=== PATIENT | male | born 1940 | race Caucasian/White ===

== ENCOUNTER 2021-12-19 08:53 | Emergency (ER) | payer MEDICARE, BC, SELFPAY ==
[2021-12-19 09:01] VITALS: BP 121/102; PULSE 81; RESP 26; TEMP 35.5; O2SAT 98; BMI 38.5
--- NOTE | 2021-12-19 09:28 | CRLHL7_ITS ---
For Patients: As a result of the Cures Act, medical imaging exams and procedure reports are released immediately into your electronic medical record. You may view this report before your referring provider. If you have questions, please contact your health care provider. INDICATION: SOB and Fluid Retention TECHNIQUE: Chest 1 view COMPARISON: None FINDINGS: Cardiovascular and mediastinum: Cardiac silhouette is enlarged. Lungs and pleural spaces: Lungs are clear. No sign of infiltrate or mass. No sign of pleural effusion. No pneumothorax. Bones and soft tissues: No significant findings. IMPRESSION: No acute findings. Dictated by Rajesh Neal MD @ 12/19/2021 10:00:30 AM (Electronically Signed)
--- NOTE | 2021-12-19 09:30 | ED_ITS ---
HPI - SOB/Dyspnea General Time Seen by Provider: 09:10 Date Seen: 12/19/21 Chief Complaint: Shortness of Breath/Dyspnea Stated Complaint: shortness of breath/AFIB Time Seen by Provider: 12/19/21 09:03 Source: patient, family and RN notes reviewed Mode of arrival: ambulatory Limitations: no limitations History of Present Illness HPI Narrative: Lg is a very pleasant 81 year old male with a history of afib on eliquis, htn, and gout who comes to the emergency room for increasing shortness of breath since Sunday. Patient notes that over the past month he has experienced increasing edema in his lower extremities. He had noted this in the past and 2 months ago had decreased his amlodipine dosing from 2 tabs to 1 tab because of the swelling. Since December 16, he has had increasing shortness of breath and has been ?huffing and puffing? around the house especially with activity. He denies any chest pain when this occurs but he does get very tired. He does have an associated nonproductive cough but denies a sore throat. His nose has been running but this sounds like this is a chronic issue. He has not had congestive heart failure in the past nor his experienced see any heart attacks. He has not had fever or chills. He primarily sees Dr. Orozco from [facility] in [place]. He called to try to get an appointment today and was unable to be seen for 6 weeks. He is now planning on changing his care locally. Related Data Home Medications Medication Instructions Recorded Confirmed allopurinol 100 mg tablet 200 mg PO DAILY 12/19/21 12/19/21 amlodipine 2.5 mg tablet 2.5 mg PO DAILY 12/19/21 12/19/21 apixaban 5 mg tablet (Eliquis) 5 mg PO BID 12/19/21 12/19/21 metoprolol succinate 25 mg 25 mg PO DAILY 12/19/21 12/19/21 tablet,extended release 24 hr [id number] 120 mcg-lutein 1,000 tab PO BID 12/19/21 12/19/21 150 mcg-herb 50 mg chewable tablet (Alive Men's 50 Plus Multivitamin) Previous Rx's Medication Instructions Recorded furosemide 20 mg tablet (Lasix) 20 mg PO DAILY #20 tab 12/19/21 Allergies Allergy/AdvReac Type Severity Reaction Status Date / Time Iodinated Contrast Media Allergy Verified 12/19/21 09:10 iodine Allergy Verified 12/19/21 09:10 Review of Systems Status of ROS: Reports: 10 or more systems reviewed and unremarkable except as noted in History and below Const: Denies: fever or chills Eyes: Denies: change in vision ENMT: Denies: throat pain or difficulty swallowing Cardio: Reports: shortness of breath with exertion and other (Does feel his heart rate increase with activity); Denies: chest pain or palpitations Resp: Reports: shortness of breath and cough (Nonproductive); Denies: wheezing GI: Denies: abdominal pain, nausea, vomiting or difficulty swallowing : Reports: urinary frequency (Without discomfort); Denies: painful urination Musculo: Denies: back pain Integ/Breast: Denies: skin pain Neuro: Denies: headache Endo: Denies: excessive urination or excessive thirst Allergy/Immuno: Denies: wheezing PFSH PFSH Medical History Afib Hypertension Sleep apnea in adult Social History Smoking Status: Never smoker Do you use any of these nicotine containing products: None Second hand tobacco smoke exposure: No How often do you have a drink containing alcohol: never How often do you have six or more drinks on one occasion: Never AUDIT-C Alcohol total score: 0 Non-prescribed substance use: denies use Exam Const: Vital Signs, click to edit/add: Vital Signs - 24 hr 12/19/21 09:01 Temperature 96 F L Pulse Rate [Pulse Oximeter] 81 Respiratory Rate 26 H Blood Pressure [Le ft Upper Arm] 121/102 H Pulse Oximetry 98 Documenting provider has reviewed patient's vital signs: yes Common normals: no apparent distress, oriented x3 and no limitations General appearance: cooperative and comfortable Nutritional appearance: overweight HENMT: Common normals: normocephalic and head/scalp atraumatic Head and scalp: normocephalic and atraumatic Eye: General eye: normal appearance of both eyes Neck & C-Spine: Common normals: no lymphadenopathy, supple, no JVD and thyroid normal Thyroid: thyroid normal Cervical spine: cervical ROM normal Lymph: Lymphatic: no lymphadenopathy noted Resp: Common normals: normal respiratory effort and clear to auscultation bilaterally Effort & inspection: able to speak in complete sentences (Becomes slightly breathless with extended speech.) Auscultation: clear to auscultation bilaterally Cardio: Common normals: no JVD and regular rate Rate: regular rate Rhythm: abnormal rhythm (Irregularly irregular) GI: Common normals: soft to palpation and non-tender Palpation: soft Extremity: Other: 2 to 3+ pedal edema extending on to the middle tibia noted. This is pitting. No weeping or drainage. Neuro: Common normals: oriented x3 Psych: Common normals: mental status grossly normal Appearance: grossly normal Course Course Hospital Course: At this time patient is presenting with increasing shortness of breath and associated with lower extremity edema. Differential diagnosis includes but is not limited to congestive heart failure, electrolyte imbalance, kidney pathology, COVID. At this time will obtain laboratory values to include a CBC, comprehensive panel, urinalysis, troponin, proBNP. Will also obtain EKG and chest x-ray. Patient will receive Lasix 40 mg IV after saline lock is placed. 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 He will also be on pulse oximetry. Finally, will check a COVID. Reevaluation(s) Time: 11:47 Reevaluation #2: Patient states he is feeling better after having received 40 mg IV Lasix. Feels like his right leg has decreased in size but his left leg is still swollen. He notes he is breathing better. I have explained to him that hemoglobin is elevated 18. To. He states that in the past he has been asked to follow up with his primary MD. he also notes that he has had issues with elevated calcium. Seem today is 10.3. We will set him up has a new patient with Dr. Nelson as patient lives in the [place] area. Reevaluation #3: Patient ambulating with nursing who notes and O2 sat maintained at 95%. Vital Signs Vital signs: Initial Vital Signs Temperature 96 F L 12/19/21 09:01 Temperature Source Temporal Artery Scan 12/19/21 09:01 Pulse Rate 81 12/19/21 09:01 Pulse Rhythm 12/19/21 09:01 Respiratory Rate 26 H 12/19/21 09:01 Blood Pressure 121/102 H 12/19/21 09:01 Blood Pressure Mean 108 12/19/21 09:01 Pulse Oximetry 98 12/19/21 09:01 Oxygen Delivery Method 12/19/21 09:01 Vital Signs Temperature 96 F L 12/19/21 09:01 Pulse Rate 81 12/19/21 09:01 Respiratory Rate 26 H 12/19/21 09:01 Blood Pressure 121/102 H 12/19/21 09:01 Pulse Oximetry 98 12/19/21 09:01 Temperature 96 F L 12/19/21 09:01 Pulse Rate 81 12/19/21 09:01 Respiratory Rate 26 H 12/19/21 09:01 Blood Pressure 121/102 H 12/19/21 09:01 Pulse Oximetry 98 12/19/21 09:01 MDM - SOB/Dyspnea MDM Narrative Medical decision making narrative: 1. Congestive heart failure-patient has had increasing fluid retention over the past month and shortness of breath with activity over the past 3 days. Chest x- ray read by Radiology as no acute findings. I find that he has slightly increased perihilar lung markings. EKG reassuring with no acute changes. Troponin is negative. Due to lab challenges with 1 of their machines we are unable to measure pro BNP. Patient had been given Lasix 40 mg and has been urinating and states he is feeling better and has already noticed decreased in fluid retention. Patient able to maintain saturations while ambulating. Patient will be discharged home to the care of his . I would like him to wear some compression stockings. We will continue with additional Lasix 20 mg p .o. at 1400 hours today and 20 mg daily thereafter. Patient will need to follow up with primary MD for recheck of creatinine, scheduling of outpatient echocardiogram and Hematology referral. 2. Elevated hemoglobin-hemoglobin 18.2. Patient has been instructed to follow up in the past. He will need to go through his primary MD for Hematology referral 3. Disposition-patient is feeling better and will be discharged home. We are attempting to make a follow-up appointment with a provider in our system. Patient is return to the emergency room for worsening symptoms. He continues to diurese well. Medical Records Attestation: I reviewed the patient's medical records. Lab Data Attestation: I reviewed the patient's lab results. Lab results narrative: White count is reassuring as is a chest x-ray with no evidence of pneumonia. Hemoglobin 18.2. Calcium within normal limits Labs: Lab Results 12/19/21 12/19/21 12/19/21 Range/Units 09:05 09:05 09:05 WBC 7.34 (4.50-11.00) K/uL RBC 5.59 (4.30-5.90) m/uL Hgb 18.2 H (13.5-17.5) gm/dL Hct 53.1 H (37.0-53.0) % MCV 95 (80-100) fL MCH 33 (26-34) pg MCHC 34 (32-36) gm/dL RDW Coeff of Misha 13.0 (11.5-15.5) % Plt Count 197 (140-440) K/uL Neut % (Auto) 71.5 (42.0-72.0) % Lymph % (Auto) 16.1 L (20-44) % Coal % (Auto) 10.8 (0.0-11.0) % Eos % (Auto) 1.1 (0.0-7.0) % Baso % (Auto) 0.4 (0.0-3.0) % Neut # (Auto) 5.25 (1.7-7.0) K/uL Lymph # (Auto) 1.20 (0.90-2.90) K/uL Coal # (Auto) 0.80 (0.00-0.90) K/UL Eos # (Auto) 0.08 (0.00-0.50) K/uL Baso # (Auto) 0.03 (0.00-0.30) K/uL Abs Immat Gran (auto) 0.01 (0.00-0.30) K/uL Sodium 137 (135-149) mmol/L Potassium 4.5 (3.6-5.1) mmol/L Chloride 105 (96-114) mmol/L Carbon Dioxide 25 (20-32) mmol/L BUN 22 (7-30) mg/dL Creatinine 1.1 (0.5-1.5) mg/dL Estimated Creat Clear 56.22 Estimated GFR 68 ml/min Glucose 108 (60-115) mg/dL Calcium 10.3 (8.4-10.6) mg/dL Total Bilirubin 1.1 (0.1-1.5) mg/dL AST 41 H (12-35) U/L ALT 37 (4-50) U/L Alkaline Phosphatase 65 (40-150) U/L Total Protein 6.5 (6.0-8.3) g/dL Albumin 4.1 (3.3-5.0) g/dL Urine Color (Yellow) Urine Appearance (Clear) Urine pH (5.0-8.5) Ur Specific [place] (1.000-1.030) Urine Protein (Negative) Urine Glucose (UA) (Negative) Urine Ketones (Negative) Urine Blood (Negative) Urine Nitrite (Negative) Urine Bilirubin (Negative) Urine Urobilinogen (0.2-1.0) Ur Leukocyte Esterase (Negative) SARS-CoV-2 (PCR) (Negative) Influenza Type A (PCR) (Negative) Influenza Type B (PCR) (Negative) POC Troponin I 0.01 (0.01-0.04) ng/ml 12/19/21 12/19/21 Range/Units 09:27 10:28 WBC (4.50-11.00) K/uL RBC (4.30-5.90) m/uL Hgb (13.5-17.5) gm/dL Hct (37.0-53.0) % MCV (80-100) fL MCH (26-34) pg MCHC (32-36) gm/dL RDW Coeff of Misha (11.5-15.5) % Plt Count (140-440) K/uL Neut % (Auto) (42.0-72.0) % Lymph % (Auto) (20-44) % Coal % (Auto) (0.0-11.0) % Eos % (Auto) (0.0-7.0) % Baso % (Auto) (0.0-3.0) % Neut # (Auto) (1.7-7.0) K/uL Lymph # (Auto) (0.90-2.90) K/uL Coal # (Auto) (0.00-0.90) K/UL Eos # (Auto) (0.00-0.50) K/uL Baso # (Auto) (0.00-0.30) K/uL Abs Immat Gran (auto) (0.00-0.30) K/uL Sodium (135-149) mmol/L Potassium (3.6-5.1) mmol/L Chloride (96-114) mmol/L Carbon Dioxide (20-32) mmol/L BUN (7-30) mg/dL Creatinine (0.5-1.5) mg/dL Estimated Creat Clear Estimated GFR ml/min Glucose (60-115) mg/dL Calcium (8.4-10.6) mg/dL Total Bilirubin (0.1-1.5) mg/dL AST (12-35) U/L ALT (4-50) U/L Alkaline Phosphatase (40-150) U/L Total Protein (6.0-8.3) g/dL Albumin (3.3-5.0) g/dL Urine Color Yellow (Yellow) Urine Appearance Clear (Clear) Urine pH 6.5 (5.0-8.5) Ur Specific [place] 1.015 (1.000-1.030) Urine Protein Negative (Negative) Urine Glucose (UA) Negative (Negative) Urine Ketones Negative (Negative) Urine Blood Negative (Negative) Urine Nitrite Negative (Negative) Urine Bilirubin Negative (Negative) Urine Urobilinogen 0.2 (0.2-1.0) Ur Leukocyte Esterase Negative (Negative) SARS-CoV-2 (PCR) Negative SARS-CoV-2 (Negative) Influenza Type A (PCR) Negative PCR FLU A (Negative) Influenza Type B (PCR) Negative PCR FLU B (Negative) POC Troponin I (0.01-0.04) ng/ml Imaging Data Chest x-ray: Attestation: I have reviewed the pertinent imaging results. My impression: Slightly increased lung markings especially in the perihilar areas. No evidence of infiltrate. Radiologist's impression: No acute findings ECG Data Attestation: I personally reviewed and interpreted this ECG as follows: ECG interpretation date: 12/19/21 Prior ECG tracings: not available for review Interpretation: EKG by my read shows a regular rhythm of atrial fibrillation with RVR at a rate of 102. Q-waves noted in V1 and V2 but these do not hear acute. Poor R-wave progression is noted. Discharge Plan Discharge Clinical Impression: Elevated hemoglobin, CHF (congestive heart failure) Patient Disposition: Home, Self-Care Condition: Improved Additional Instructions: Take additional Lasix 20 mg at approximately 1400 hours this afternoon. Continue to take good fluid intake. Follow-up with new primary MD. Recommend use of compression stockings to help with lower extremity swelling. When seeing new primary MD, you will need an outpatient echocardiogram, recheck of your creatinine, and referral to hematology for elevated hemoglobin levels. Return to the emergency room for worsening symptoms and as needed. Follow up appointment scheduled at the [facility] on 12/22 with a 10:50am arrival time. [id number] [place] [address] Activity Level: Activity as Tolerated Prescriptions: New furosemide [Lasix] 20 mg tablet 20 mg PO DAILY Qty: 20 2RF No Action Alive Men's 50 Plus Multivit 120 mcg-150 mcg -50 mg tablet,chewable 1,000 tab PO BID 0RF Eliquis 5 mg tablet 5 mg PO BID 0RF amlodipine 2.5 mg tablet 2.5 mg PO DAILY 0RF metoprolol succinate 25 mg tablet extended release 24 hr 25 mg PO DAILY 0RF allopurinol 100 mg tablet 200 mg PO DAILY 0RF Follow Up/Referrals: Provider,Not a Local [Primary Care Provider] - Stand Alone Forms: [employer] Info Instructions
[2021-12-19 09:42] LABS: Basophils Absolute Auto 0.03 K/uL (0.00-0.30); Basophils Percent Auto 0.4 % (0.0-3.0); Eosinophils Absolute Auto 0.08 K/uL (0.00-0.50); Eosinophils Percent Auto 1.1 % (0.0-7.0); Hematocrit 53.1 % (37.0-53.0); Hemoglobin* 18.2 gm/dL (13.5-17.5); Immature Granulocytes Abs Auto 0.01 K/uL (0.00-0.30); Lymphocytes Percent Auto 16.1 % (20-44); Mean Corpuscular HGB Conc 34 gm/dL (32-36); Mean Corpuscular Hemoglobin 33 pg (26-34); Mean Corpuscular Volume 95 fL (80-100); Monocytes Percent Auto 10.8 % (0.0-11.0); Neutrophils Absolute Auto 5.25 K/uL (1.7-7.0); Neutrophils Percent Auto 71.5 % (42.0-72.0); Platelet Count* 197 K/uL (140-440); Red Blood Count 5.59 m/uL (4.30-5.90); White Blood Count* 7.34 K/uL (4.50-11.00)
[2021-12-19 09:45] LABS: Slide Review Reflex No
[2021-12-19 09:46] LABS: Troponin, Point-of-Care* 0.01 ng/ml (0.01-0.04)
[2021-12-19] MEDS: FUROSEMIDE 10 MG/ML inj 40 MG IV (09:50)
[2021-12-19 09:59] LABS: Chloride* 105 mmol/L (96-114)
[2021-12-19 10:00] LABS: Albumin* 4.1 g/dL (3.3-5.0); Potassium* 4.5 mmol/L (3.6-5.1); Sodium* 137 mmol/L (135-149)
[2021-12-19 10:02] LABS: Creatinine* 1.1 mg/dL (0.5-1.5); Est. Creatinine Clearance* 56.22; Estimated Glomerular Filt Rate 68 ml/min
[2021-12-19 10:03] LABS: Alanine Aminotransferase* 37 U/L (4-50); Alkaline Phosphatase* 65 U/L (40-150); Aspartate Amino Transferase* 41 U/L (12-35); Bilirubin Total* 1.1 mg/dL (0.1-1.5); Blood Urea Nitrogen* 22 mg/dL (7-30); Calcium* 10.3 mg/dL (8.4-10.6); Carbon Dioxide* 25 mmol/L (20-32); Glucose* 108 mg/dL (60-115); Total Protein* 6.5 g/dL (6.0-8.3)
[2021-12-19 10:37] LABS: Appearance Urine Clear (Clear); Bilirubin Urine Negative (Negative); Blood Urine Negative (Negative); Color Urine Yellow (Yellow); Glucose Urine Negative (Negative); Ketones Urine Negative (Negative); Leukocyte Esterase Urine Negative (Negative); Nitrite Urine Negative (Negative); Protein Urine Negative (Negative); Specific Gravity Urine 1.015 (1.000-1.030); Urobilinogen Urine 0.2 (0.2-1.0); pH Urine 6.5 (5.0-8.5)
[2021-12-19 10:56] LABS: PCR FLU A Negative PCR FLU A (Negative); PCR FLU B Negative PCR FLU B (Negative)
[2021-12-19 11:20] LABS: SARS PCR* Negative SARS-CoV-2 (Negative)
[2021-12-19 12:49] LABS: NT Pro B Type NatriureticPept* 1690 PG/mL (0-450)
== END 2021-12-19 12:11 | disposition home or self-care (01) ==
PROVIDERS: Emergency Provider Family Medicine
DX: R71.8 Other abnormality of red blood cells (principal); I50.9 Heart failure, unspecified
CPT/HCPCS: 36415; 71045; 80053; 81003; 83880; 84484; 85025; 87502; 87635; 93005; 96374; 99285; J1940

== ENCOUNTER 2021-12-22 11:47 | Outpatient (CLI) | payer MEDICARE, BC, SELFPAY ==
[2021-12-22 21:17] LABS: Iron* 97 ug/dL (49-181)
[2021-12-22 21:27] LABS: Percent Iron Saturation 27 % (20-50); Total Iron Binding Capacity 357 ug/dL (261-462)
[2021-12-22 21:28] LABS: NT Pro B Type NatriureticPept* 1650 PG/mL (0-450)
[2021-12-25 04:06] LABS: Transferrin 237 mg/dL (200-360)
[2021-12-25 05:34] LABS: Erythropoietin 27 mU/mL (4-27)
== END 2021-12-22 11:48 | disposition home or self-care (01) ==
PROVIDERS: Visit Provider Emergency Medicine
DX: D58.2 Other hemoglobinopathies (principal); I50.9 Heart failure, unspecified; I48.91 Unspecified atrial fibrillation
CPT/HCPCS: 82668; 82728; 83540; 83550; 83880; 84466

== ENCOUNTER 2021-12-30 11:15 | Outpatient (CLI) | payer MEDICARE, BC, SELFPAY | END 2021-12-30 11:16 | disposition home or self-care (01) | PROVIDERS: PCP Family Medicine; Visit Provider Emergency Medicine | DX: I50.9 Heart failure, unspecified (principal); I51.7 Cardiomegaly; I34.0 Nonrheumatic mitral (valve) insufficiency | CPT/HCPCS: 93306; 93320; 93325 ==